=== PATIENT | female | born 1960 | race Caucasian/White ===

== ENCOUNTER 2017-06-09 07:04 | Emergency (ER) | payer MEDICARE, MEDICAID ==
[~2017-06-09] VITALS: Ht 170.2 cm; Wt 61.2 kg
[~2017-06-09 07:04] MED LIST: LYRICA200 MG PO; METHADONE HCL 110 M1 PO; OXYCODONE HCL10 MG; PERCOCET 10-321 EACH PO; PERCOCET 5-3251 EACH PO; TOPAMAX50 MG PO; [UNRECOGNIZED DRUG - OTHER] PO
[2017-06-09 07:12] VITALS: BP 144/83
[2017-06-09] MEDS ORDERED: LAMICTAL100 MG PO (07:14)
[2017-06-09] MEDS ORDERED: PERCOCET 5-3251 EACH PO (07:19)
== END 2017-06-09 07:39 | disposition home or self-care (01) ==
LOC: M.ERS 07:04
DX: G89.29 Other chronic pain (principal); M54.32 Sciatica, left side; F32.9 Major depressive disorder, single episode, unspecified; G43.909 Migraine, unspecified, not intractable, without status migrainosus; F10.99 Alcohol use, unspecified with unspecified alcohol-induced disorder; Z88.0 Allergy status to penicillin; Z88.1 Allergy status to other antibiotic agents

== ENCOUNTER 2017-06-19 11:34 | Emergency (ER) | payer MEDICARE, MEDICAID ==
[~2017-06-19] VITALS: Ht 170.2 cm; Wt 61.2 kg
[~2017-06-19 11:34] MED LIST changes: +LAMICTAL100 MG PO
[2017-06-19] MEDS ORDERED: NORCO 5-325 TA1 EACH PO (11:58)
[2017-06-19] MEDS ORDERED: FLEXERIL PO (11:58)
[2017-06-19 12:38] VITALS: BP 161/87
== END 2017-06-19 12:38 | disposition home or self-care (01) ==
LOC: M.ERS 11:34
DX: M54.42 Lumbago with sciatica, left side (principal); F32.9 Major depressive disorder, single episode, unspecified; M79.7 Fibromyalgia; G43.909 Migraine, unspecified, not intractable, without status migrainosus; G89.29 Other chronic pain; M54.2 Cervicalgia; F17.210 Nicotine dependence, cigarettes, uncomplicated; Z88.1 Allergy status to other antibiotic agents; Z88.0 Allergy status to penicillin

== ENCOUNTER 2017-06-25 11:35 | Emergency (ER) | payer MEDICARE, MEDICAID ==
[~2017-06-25] VITALS: Ht 162.6 cm; Wt 59.0 kg
[~2017-06-25 11:35] MED LIST changes: +FLEXERIL PO; +NORCO 5-325 TA1 EACH PO
[2017-06-25] MEDS ORDERED: NORFLEX100 MG PO (12:24)
[2017-06-25] MEDS ORDERED: PREDNISONE 10 M10 MG PO (12:24)
[2017-06-25 12:43] VITALS: BP 176/88
== END 2017-06-25 12:43 | disposition home or self-care (01) ==
LOC: M.ERS 11:35
DX: M54.32 Sciatica, left side (principal); F32.9 Major depressive disorder, single episode, unspecified; G43.909 Migraine, unspecified, not intractable, without status migrainosus; F17.210 Nicotine dependence, cigarettes, uncomplicated; Z88.1 Allergy status to other antibiotic agents; Z88.0 Allergy status to penicillin

== ENCOUNTER 2017-12-09 22:25 | Emergency (ER) | payer MEDICARE, MEDICAID ==
[~2017-12-09] VITALS: Ht 170.2 cm; Wt 59.0 kg
[~2017-12-09 22:25] MED LIST changes: +NORFLEX100 MG PO; +PREDNISONE 10 M10 MG PO
[2017-12-09] MEDS ORDERED: PERCOCET 7.5-31 EACH PO (23:08)
[2017-12-09] MEDS ORDERED: LYRICA 75 MG CA75 MG PO (23:09)
[2017-12-10] MEDS ORDERED: LIDODERM1 EACH TRANSDERM (00:49)
[2017-12-10] MEDS ORDERED: PREDNISONE50 MG PO (00:49)
[2017-12-10 01:05] VITALS: BP 135/71
== END 2017-12-10 01:07 | disposition home or self-care (01) ==
LOC: M.ERS 22:25
DX: M54.42 Lumbago with sciatica, left side (principal); F32.9 Major depressive disorder, single episode, unspecified; G43.909 Migraine, unspecified, not intractable, without status migrainosus; M79.7 Fibromyalgia; F17.210 Nicotine dependence, cigarettes, uncomplicated; Z88.0 Allergy status to penicillin; Z88.1 Allergy status to other antibiotic agents